=== PATIENT | male | born 1995 | race African-American/Black ===

== ENCOUNTER 2024-11-28 02:49 | Emergency (ER) | payer SELFPAY ==
[2024-11-28] MEDS ORDERED: Ketorolac Tromethamine 30 MG (1 mL) VIAL ONE (03:10)
== END 2024-11-28 04:15 ==
LOC: CSHERS 02:49
DX: M25.512 Pain in left shoulder (principal)
CPT/HCPCS: 96372; 99283; J1885

== ENCOUNTER 2025-07-09 17:57 | Emergency (ER) | payer OTHER, SELFPAY | END 2025-07-09 20:16 | disposition home or self-care (01) | LOC: CSHERS 17:57 | DX: J18.9 Pneumonia, unspecified organism (principal) | CPT/HCPCS: 71046; 87081; 87428; 87430 ==

== ENCOUNTER 2025-07-21 17:55 | Emergency (ER) | payer OTHER | END 2025-07-21 19:40 | LOC: CSHERS 17:55 | DX: R19.7 Diarrhea, unspecified (principal); J15.9 Unspecified bacterial pneumonia; T36.0X5A Adverse effect of penicillins, initial encounter; T36.1X5A Adverse effect of cephalosporins and other beta-lactam antibiotics, initial encounter | CPT/HCPCS: 99283 ==